=== PATIENT | male | born 1970 | race Hispanic/Latino ===

== ENCOUNTER 2017-03-01 18:43 | Emergency (ER) | payer MEDICARE, MEDICAID ==
[~2017-03-01] VITALS: Ht 172.7 cm; Wt 90.7 kg
[~2017-03-01 18:43] MED LIST: LORazepam Inj 2mg/ml 1ml IV ONE; NKM
[2017-03-01 18:46] VITALS: BP 132/68
--- NOTE | 2017-03-01 19:21 | Emergency Room Report ---
History of Present Illness General Chief Complaint: Overdose Source: Patient, EMS Present Illness HPI [id number] BIBEMS "after he injected himself." He states he "doesnt know what I injected myself with" and "Im not sure why I injected myself." Denies ETOH, drug use [facility] because "I had a headache" after self- injecting EMS rhythm strip was sinus tach. Vitals otherwise stable Was very diaphoretic on scene Denies chest pain, SOB, palpitations, abd pain, fever/chills Last visit here was 4 years ago. Took Abilify at the time Allergies: Coded Allergies: No Known Allergies (Unverified , 01/12/13) Patient History Past Medical History: psych hx Past Surgical History: none Pertinent Family History: none Social History: Denies: smoking, alcohol use, drug use Immunizations: UTD Reviewed Nursing Documentation: PMH: Agreed, PSxH: Agreed Nursing Documentation-PMH Past Medical History: No Stated History Review of Systems All Other Systems: negative except mentioned in HPI Physical Exam Vital Signs Date Time Temp Pulse Resp B/P (MAP) Pulse Ox O2 Delivery O2 Flow Rate FiO2 03/01/17 18:24 99.0 153 20 117/82 99 Room Air Sp02 EP Interpretation: reviewed, normal General Appearance: normal inspection, well appearing, no apparent distress, alert, obese, other - Diaphoretic Head: normocephalic, atraumatic Eyes: bilateral eye PERRL, bilateral eye abnormal pupil ENT: normal ENT inspection, hearing grossly normal, normal voice Neck: normal inspection, full range of motion, supple, no bony tend Respiratory: normal inspection, lungs clear, normal breath sounds, no respiratory distress, no retraction, no accessory muscle use, no wheezing, speaking full sentences Cardiovascular #1: regular rate, rhythm, no edema, tachycardia Gastrointestinal: normal inspection, normal bowel sounds, non tender, soft, no guarding, no hernia Musculoskeletal: normal inspection, back normal, normal range of motion, Finn' s Sign negative Neurologic: normal inspection, alert, oriented x3, responsive, complex case manager III-XII nml as tested, motor strength/tone normal, speech normal Psychiatric: normal inspection, judgement/insight normal, mood/affect normal Skin: normal inspection, normal color, no rash Medical Decision Making Diagnostic Impression: Primary Impression: Drug overdose Qualified Codes: T50.901A - Poisoning by unspecified drugs, medicaments and biological substances, accidental (unintentional), initial encounter Additional Impression: Tachycardia ER Course Utox + for meth - likely what patient injected himself with given tachycardia, hypertension, pupil dilation, diaphoresis, AMS - sympathomimetic syndrome HR down from 140 to 110 after IVF 2L NS and IV Ativan Patient feels much better Signed out to Dr Garcia at 10pm to DC patient when more sober/alert DC home EKG Diagnostic Results Rate: tachycardiac Rhythm: NSR ST Segments: no acute changes Rhythm Strip Diag. Results EP Interpretation: yes Rate: 135 Rhythm: NSR, no PVC's, no ectopy Last Vital Signs Date Time Temp Pulse Resp B/P (MAP) Pulse Ox O2 Delivery O2 Flow Rate FiO2 03/01/17 18:24 99.0 153 20 117/82 99 Room Air Status: improved Disposition: HOME, SELF-CARE LARY BURDICK M.D. Mar 01, 2017 19:21
[2017-03-01 19:49] VITALS: BP 111/78
[2017-03-01 20:44] VITALS: BP 118/72
[2017-03-01 21:44] VITALS: BP 111/68
[2017-03-01 22:50] VITALS: BP 117/79
--- NOTE | 2017-03-10 08:23 | Cardiology Report ---
APPROVED REPORT EKG Measurement Heart [id number] Sinus tachycardia Otherwise normal ECG
== END 2017-03-01 22:50 | disposition home or self-care (01) ==
LOC: EDBD 18:43 → EMR 19:30
DX: T50.901A Poisoning by unspecified drugs, medicaments and biological substances, accidental (unintentional), initial encounter (principal); Y92.89 Other specified places as the place of occurrence of the external cause; R00.0 Tachycardia, unspecified
CPT/HCPCS: 80300; 93005; 96361; 96374; 99284